=== PATIENT | female | born 1940 | race Caucasian/White ===

== ENCOUNTER → 2022-02-20 | Day surgery (SDC) | payer MEDICARE, OTHER ==
[~2022-02-20] MED LIST: Heparin 1,000 UNITS/ML VIAL ONE
== END | disposition home or self-care (01) ==
LOC: SPEC 10:04
PROVIDERS: ATTEND Specialist
PROC: 02HV33Z Insertion of Infusion Device into Superior Vena Cava, Percutaneous Approach (ICD-10-PCS; principal; 2022-02-20)
DX: J40 Bronchitis, not specified as acute or chronic (principal); B96.5 Pseudomonas (aeruginosa) (mallei) (pseudomallei) as the cause of diseases classified elsewhere; D80.1 Nonfamilial hypogammaglobulinemia; Z79.2 Long term (current) use of antibiotics; Z88.2 Allergy status to sulfonamides; Z88.5 Allergy status to narcotic agent; Z91.041 Radiographic dye allergy status
CPT/HCPCS: 36569; C1751; J1644